=== PATIENT | male | born 1950 | race Caucasian/White ===

== ENCOUNTER 2018-11-20 19:00 | Inpatient (IN) ==
[2018-11-20 23:26] LABS: BASO# 0.03 X1000 (0.0-0.2); BASO% 0.3 % (0.0-0.8); EOS# 0.16 X1000 (0.0-0.7); EOS% 1.7 % (0.0-10.0); HEMATOCRIT 48.3 % (42.0-52.0); HEMOGLOBIN 16.1 g/dL (14.0-18.0); IMM GRAN# 0.03 X1000 (0.0-0.04); IMM GRAN% 0.3 % (0.0-0.5); LYMPH# 2.76 X1000 (1.2-3.4); LYMPH% 29.4 % (20.5-51.1); MCH 31.6 PG (27-31); MCHC 33.3 g/dL (33-37); MCV 94.9 FL (81-99); MONO# 1.07 X1000 (0.11-0.59); MONO% 11.4 % (1.7-9.3); MPV 10.2 FL (7.4-10.4); NEUT# 5.33 X1000 (1.4-6.5); NEUT% 56.9 % (42.2-75.2); PLT 240 X1000 (130-400); RBC 5.09 XMIL (4.7-6.1); RDW 13.1 % (11.5-14.5); WBC 9.38 X1000 (4.8-10.8)
[2018-11-20 23:35] LABS: INR 0.93; PROTIME 13.2 Seconds (11.0-16.0); PTT 29.2 Seconds (22.3-41.8)
[2018-11-20 23:44] LABS: ALB/GLOB RATIO 1.6; ALBUMIN 4.7 g/dL (3.5-5.0); CALCIUM 9.9 mg/dL (8.8-10.2); CREATININE 1.2 mg/dL (0.7-1.2); TOTAL BILIRUBIN 0.44 mg/dL (0.20-1.00); TOTAL PROTEIN 7.6 g/dL (6.3-8.3)
--- NOTE | 2018-11-21 02:33 | ED EKG INTERP ---
This chart was entered by Reyna Lacy Scribe, acting as scribe for Osman Carrera MD. EKG Interpretation - EKG Time of EKG reading by physician:: 19:07 EKG Read and Signed by:: Osman Carrera EKG Interpretation (*Must complete 3 of following elements*): Normal Rate: 79 Rhythm: sinus with pvc [place]: normal ST Wave: normal Attestation - Physician/ VICKY Attestation Patient care was provided by Advanced Practice Provider:: No The physician spent face to face time with patient:: Yes Advanced Practice Provider documentation review:: Supervising physician onsite and consulted in the evaluation and care of this patient. The physician did have a face to face encounter with the patient. This chart was documented by the indicated scribe, (Reyna Lacy Scribe) and accurately reflects the services I performed and decisions made by me, Osman Carrera MD, as attested by the provider's signature.
[2018-11-21] MEDS ORDERED: BENADRYL PO ONE (02:38)
[2018-11-21] MEDS ORDERED: TYLENOL PO PRN (03:40)
[2018-11-21] MEDS ORDERED: ZOFRAN IV PRN (03:40)
--- NOTE | 2018-11-21 06:18 | Diag Imaging Result Doc PS360 ---
CT HEAD W/O CONTRAST - 11/20/2018 INDICATION: dizziness COMPARISON: None FINDINGS: The ventricles and sulci are normal in size and contour. No intracranial mass or hemorrhage. The skull is intact. The sinuses mastoids and middle ears are clear. IMPRESSION: Negative exam. This exam was performed using automated exposure control, adjustment of mA or kV according to patient size, and/or use of iterative reconstruction technique Electronically signed by Shashank Vilchis 11/21/2018 6:16 AM
[2018-11-21] MEDS: SYNTHROID PO SCH (06:44)
--- NOTE | 2018-11-21 07:36 | Diag Imaging Result Doc PS360 ---
CHEST-1 VIEW - 11/20/2018 INDICATION: Dizziness, CP COMPARISON: 08/29/2018 FINDINGS: The lungs are normally expanded and clear. Heart size and mediastinal contours are normal. No pneumothorax or pleural effusion. IMPRESSION: Negative exam. Electronically signed by Shashank Vilchis 11/21/2018 7:34 AM
--- NOTE | 2018-11-21 07:38 | EKG Report ---
Test Performed on : 11/21/2018 07:14:10 AM Test Reason : chest pain Blood Pressure : / mmHG Vent. Rate : 053 BPM Atrial Rate : 053 BPM P-R Int : 158 ms QRS Dur : 110 ms QT Int : 440 ms P-R-T Axes : 021 -13 025 degrees QTc Int : 412 ms Sinus bradycardia. Otherwise normal ECG When compared with ECG of 20-NOV-2018 19:07, (Unconfirmed) premature supraventricular complexes. are no longer present Vent. rate has decreased BY 26 BPM Unconfirmed Result
--- NOTE | 2018-11-21 08:02 | EKG Report ---
Test Performed on : 11/20/2018 7:07:00 PM Test Reason : palpitations Blood Pressure : / mmHG Vent. Rate : 079 BPM Atrial Rate : 079 BPM P-R Int : 158 ms QRS Dur : 102 ms QT Int : 382 ms P-R-T Axes : 043 -19 041 degrees QTc Int : 438 ms Sinus rhythm. with premature supraventricular complexes. Otherwise normal ECG When compared with ECG of 20-APR-2018 07:05, premature supraventricular complexes. are now present Vent. rate has increased BY 28 BPM Unconfirmed Result
[2018-11-21 08:09] LABS: BASO# 0.03 X1000 (0.0-0.2); BASO% 0.4 % (0.0-0.8); EOS# 0.18 X1000 (0.0-0.7); EOS% 2.1 % (0.0-10.0); HEMOGLOBIN 15.7 g/dL (14.0-18.0); IMM GRAN# 0.03 X1000 (0.0-0.04); IMM GRAN% 0.4 % (0.0-0.5); LYMPH# 1.96 X1000 (1.2-3.4); LYMPH% 23.3 % (20.5-51.1); MCH 31.3 PG (27-31); MCHC 32.7 g/dL (33-37); MCV 95.8 FL (81-99); MONO% 11.9 % (1.7-9.3); MPV 10.5 FL (7.4-10.4); NEUT# 5.23 X1000 (1.4-6.5); NEUT% 61.9 % (42.2-75.2); PLT 218 X1000 (130-400); RBC 5.01 XMIL (4.7-6.1); RDW 13.2 % (11.5-14.5); WBC 8.43 X1000 (4.8-10.8)
[2018-11-21 08:10] LABS: AGAP 13; ALB/GLOB RATIO 1.6; ALBUMIN 4.4 g/dL (3.5-5.0); ALKALINE PHOSPHATASE 49 U/L (32-122); BUN 14 mg/dL (8-22); CALCIUM 9.6 mg/dL (8.8-10.2); CHLORIDE 102 mmol/L (98-107); COSMO 278; CREATININE 1.1 mg/dL (0.7-1.2); ESTIMATED GFR > 60; GLUCOSE 96 mg/dL (70-104); GOT 38 U/L (10-34); GPT 57 U/L (10-44); MAGNESIUM 1.8 mg/dL (1.5-2.7); POTASSIUM 3.9 mmol/L (3.5-5.1); SODIUM 139 mmol/L (136-145); TCO2 24 mmol/L (25-35); TOTAL BILIRUBIN 0.55 mg/dL (0.20-1.00); TOTAL PROTEIN 7.2 g/dL (6.3-8.3)
[2018-11-21] MEDS ORDERED: ASPIRIN PO SCH (09:00)
--- NOTE | 2018-11-21 09:09 | HISTORY AND PHYSICAL ---
PRIMARY CARE PROVIDER: Doris Jimenez MD. DIAL BUFFER: Ryan Ibanez MD. CHIEF COMPLAINT: Chest pain. HISTORY OF PRESENT ILLNESS: Mr. Yoder is a 68-year-old male, who presented to the ER yesterday evening on 11/20 at 1900. He states that earlier in the day on 11/20 he was actually up on his roof. He was doing some caulking work. The patient denied any kind of strenuous activity. He stated that he became dizzy. He did decided to get off the roof and take a rest. He said that a few hours later he was out in his garage and sitting working on some things and did have another episode of dizziness. Approximately 30 minutes to an hour after this, they were in the car riding. The patient was sitting down, not doing any strenuous activity when he began having left- sided chest pain. The patient states that it kind of started in his shoulder went into his chest and down his left side. He denied any radiation to his bilateral, neck, jaw, or back. He denied shortness of breath or diaphoresis. The patient states that the pain was a cramping in nature. The patient's chest pain had resolved by the time he had arrived to the ER. He has denied any chest pain since his arrival to the ER and is not complaining of any chest pain at this time. He denies headache, shortness of breath, cough, abdominal pain, nausea, vomiting, or diarrhea. The patient states that he usually has problems with constipation and does take medicine for this daily. He does at this time report that his stomach feels a little more distended than normal. The patient is complaining that he has a gassy-type feeling of being bloated. He denied any dysuria or urinary frequency. He denies current pain, numbness, tingling, or swelling in the extremities though the patient states that he occasionally notices that his socks may leave indentions in his legs towards the end of the day. The patient denies any recent illness except for he did have possible flu approximately 3-4 weeks ago. He reported that he did have a day or two of nausea, vomiting, and diarrhea, with fever, though he never was tested for the flu, they did treat him with Tamiflu and he states that his symptoms have since resolved. Upon arrival to the ER, the patient vital signs were: Temperature 98.4, heart rate 61, respirations 16, blood pressure is 164/95, oxygen saturation 92% room air. His EKG showed sinus rhythm with premature supraventricular complexes, though there does not to be any acute changes noted. Cardiac enzymes thus far have been negative. A chest x-ray showed no acute abnormalities. At this time, the patient will be admitted for further treatment and evaluation of his chest pain. The patient also reported having an approximately 15 minute period of nose bleeding this afternoon as well. The patient does report that he does have a lot of problems with allergies and has had recent rhinorrhea and does occasionally notice that he has blood-tinged sinus drainage when blowing his nose at times. REVIEW OF SYSTEMS: A 14-point review of systems was conducted with the patient and all were negative except pertinent positives mentioned in the above HPI. PAST MEDICAL HISTORY: 1. History of diverticulitis. 2. Paroxysmal atrial fibrillation currently on aspirin. 3. Type 2 diabetes mellitus. 4. Hypertension. 5. Hyperlipidemia. 6. BPH. 7. Asthma. 8. Hypothyroidism. 9. Seasonal allergies. PAST SURGICAL HISTORY: 1. Tonsillectomy. 2. TURP. SOCIAL HISTORY: The patient is a former smoker. He quit smoking in 1977 though did have a 10 year history of prior this smoking 1-1/2 packs per day. He denies any alcohol or illicit drug use. He is . He is a retired from doing maintenance work. There is no alcohol or illicit drug use. FAMILY HISTORY: Positive for his mother having a history of stroke. She from a myocardial infarction at age 64. His father from a myocardial infarction at age 77. He does have a sister, who he states has pretty much the same medical problems that he does. ALLERGIES: The patient has allergies to codeine. HOME MEDICATIONS: 1. Vitamin C 500 mg p.o. at bedtime. 2. Aspirin 325 mg p.o. daily. 3. Astelin nasal spray 1 spray each nostril p.o. q.a.m. 4. Citracal plus vitamin D 1 p.o. daily. 5. Zyrtec 10 mg p.o. daily. 6. Vitamin B12 500 mg p.o. q.a.m. 7. Benadryl 50 mg p.o. at bedtime. 8. Fiber capsule 6 each p.o. daily. 9. Flaxseed oil 1300 mg softgel 1 capsule p.o. b.i.d. 10.Breo Ellipta 200 mg - 25 mcg inhaler 1 puff inhaled q.a.m. 11.Glimepiride 1 mg p.o. daily. 12.Hydrochlorothiazide 12.5 mg p.o. daily. 13.Lactulose 30 mL p.o. at bedtime. 14.Levothyroxine 50 mcg p.o. q.a.m. 15.Loratadine 10 mg p.o. daily. 16.Losartan 100 mg p.o. q.a.m. 17.Lovastatin 20 mg p.o. at bedtime. 18.Centrum Silver multivitamin 1 p.o. daily. 19.Niacin 500 mg b.i.d. 20.Irais-Colace 2 tablets p.o. b.i.d. 21.Actos 50 mg p.o. q.a.m. 22.MiraLAX 17 g p.o. b.i.d. as needed. 23.Zantac 75 mg p.o. b.i.d. DIAGNOSTIC DATA/LABORATORY RESULTS: White blood cell count is 9380, hemoglobin 16.1, hematocrit 48.3, platelet count is 240. PT 13.2. INR 0.93. PTT is 29.2. Sodium 141, potassium 4, chloride 101, serum bicarb is 24, BUN 16, creatinine 1.2, with a GFR of 60, glucose 94, calcium 9.9. Liver function tests are within normal limits except for AST and ALT are both slightly elevated. CK 175. Troponin less than 0.01. ProBNP is 58. EKG showed sinus rhythm with premature supraventricular complexes at a rate of 79 with a QTc of 438. There do not appear to be any acute changes from prior EKG at this time. Chest x-ray showed no acute abnormality. A CT of the head showed no acute intracranial disease. PHYSICAL EXAMINATION: VITAL SIGNS: Heart rate 60, respirations 17, blood pressure is 156/92, oxygen saturation is 95%. GENERAL: Mr. Yoder is a pleasant 68-year-old male who is resting in the ER stretcher. He was in no acute distress. He was awake, alert, and able to answer all questions appropriately. HEENT: Head is atraumatic, normocephalic. Pupils are equal, round, reactive to light, were 3 mm bilaterally and brisk. Oral mucosa was moist. NECK: Supple, trachea midline. No carotid bruits noted upon auscultation bilaterally. No JVD noted. CARDIOVASCULAR: The patient has S1 and S2 present. There does appear to be a faint systolic murmur noted. When asked about this, the patient states that he has been told that he had a heart murmur before. PULMONARY: The patient has symmetrical chest expansion bilaterally. Lung sounds were clear to auscultation in bilateral full flannery. ABDOMEN: Soft, does appear to be a little bit distended, though was nontender upon palpation. Bowel sounds are present in all 4 quadrants, were normoactive. EXTREMITIES: No cyanosis, clubbing, or edema noted. Pulse, motor, and sensory were intact in all extremities. Radial pulses and pedal pulses are 2+ bilaterally. INTEGUMENTARY: The patient's skin is pink, warm, and dry. NEUROLOGICAL: The patient is alert and oriented to person, place, and time, is able to move all extremities. There does not appear to be any focal neurological deficits noted. ASSESSMENT AND PLAN: 1. Chest pain. For further evaluation of this, we will continue with a series of cardiac enzymes, will repeat an EKG in the morning. The patient will be n.p.o. after midnight for a lipid profile in the morning as well. We have also ordered an echocardiogram. He will be on continuous cardiac telemetry with frequent vital signs q.4 hours. We have placed a consult with Dr. Skinner of Cardiology and will await their evaluation for recommendations for management. We have placed the patient on daily aspirin as well. 2. Hypertension. Will continue his already prescribed antihypertensive medications. 3. Hyperlipidemia. Will continue his lovastatin. 4. History of paroxysmal atrial fibrillation. The patient does appear to be in sinus rhythm at this time. His rate is controlled. Will continue to follow. 5. Diabetes mellitus. Continue his Actos and glimepiride. 6. Epistaxis. The patient did mention that he had a 15 minute period of epistaxis prior to arrival. This has subsided. He has not had any further problems. The patient reports he does have lots of problems with allergies and rhinorrhea. Given his recent epistaxis, we have held his Astelin spray. 7. Hypothyroidism. Will continue his levothyroxine. 8. Deep venous thrombosis prophylaxis will be provided with sequential compression devices. The patient has been placed on the Medical floor telemetry, will do strict intake and output. He will be n.p.o. except for water for a lipid profile in the morning. Once this is drawn, he will continue with a diabetic diet. The patient's abdomen did appear to be somewhat distended, he complained of this as well. He has reported that he has been having a lot of gas-type pain. We did order abdomen flat and upright for this morning and will await those results and continue to follow. Further orders and recommendations pending hospital course, diagnostic studies, and physician evaluation. Dictated by ERA Cisneros for Joaquín Paris MD cc: Joaquín Paris MD
[2018-11-21] MEDS: AMARYL PO SCH (09:52)
[2018-11-21] MEDS: ACTOS PO SCH (09:52)
[2018-11-21] MEDS: ZYRTEC PO SCH (09:52)
[2018-11-21] MEDS: PERICOLACE PO SCH ×2 (09:52→23:32)
[2018-11-21] MEDS: COZAAR PO SCH (09:52)
[2018-11-21] MEDS: ZANTAC PO SCH ×2 (09:53→23:32)
[2018-11-21] MEDS: HYDROCHLOROTHIAZIDE PO SCH (09:53)
--- NOTE | 2018-11-21 10:20 | Diag Imaging Result Doc PS360 ---
ABDOMEN FLAT/UPRIGHT - 11/21/2018 INDICATION: Abd distention, Hx of chronic constipation COMPARISON: 12/12/2016 FINDINGS: There is a nonobstructive bowel gas pattern. No free air or abdominal calcifications. There is no significant constipation. IMPRESSION: No acute disease. Electronically signed by Shashank Vilchis 11/21/2018 10:17 AM
--- NOTE | 2018-11-21 14:35 | CARDIOLOGY CONSULTATION ---
DATE: 11/21/2018 SUBJECTIVE: Mr. Yoder is a 68 -year-old gentleman who presented to the emergency room with history of dizziness, left sided chest discomfort, left shoulder, arm pain and some numbness. This continued over a few hours. The patient came to the emergency room was admitted. He was ruled out for myocardial infarction by cardiac enzymes. He has had a history of atrial fibrillation in the past. Currently, he is on aspirin. He is being evaluated by electrophysiology as well as far as atrial fibrillation is concerned. He has hypertension, diabetes. There is no history of palpitations. There is no history of dizziness or syncope. He has also had recent episode of epistaxis REVIEW OF SYSTEM: 14 point review of system was done. GI: There is no history of nausea, vomiting, diarrhea. There is no history of hematemesis or melena. Central nervous system: No focal weakness to suggest a CVA or TIA. Genitourinary: There is no dysuria or hematuria. PAST MEDICAL HISTORY: 1. Paroxysmal atrial fibrillation. 2. Hypertension. 3. Diabetes. 4. Hyperlipidemia. 5. Benign prostatic hypertrophy. 6. Asthma. 7. Hypothyroidism. 8. Diverticulitis. PAST SURGICAL HISTORY: 1. Tonsillectomy. 2. Transurethral resection of the prostate. HOME MEDICATIONS: Aspirin, Zyrtec, Benadryl Flaxseed, Glimepiride, Hydrochlorothiazide, lactulose, levothyroxine, loratadine, losartan 100, lovastatin, niacin, Actos, MiraLAX, Zantac. SOCIAL HISTORY: Patient is a former smoker. Quit smoking in 1977. There is no history of alcohol abuse. FAMILY HISTORY: Positive for mother having stroke. She from a myocardial infarction at the age of 64. PHYSICAL EXAMINATION: Blood pressure was 208/100 when he came in. Currently blood pressure is under control. It is 137/70.Cardiovascular System: Normal jugular venous pressure. There no thyromegaly. No carotid bruit. First and second heart sounds were heard. There was no S3 gallop. Respiratory: Normal air entry. There is no crepitations or rhonchi. Abdomen: Soft, obese, nontender. There was no guarding or rigidity. Bowel sounds were heard. Central nervous system: Alert and was moving all 4 extremities. Extremities: Revealed no pedal edema. HEENT: Atraumatic, normocephalic. Pupils were equal and reacting to light. LABORATORY DATA: The patient was ruled out for myocardial infarction by cardiac enzymes. Electrocardiogram revealed sinus bradycardia. There was no ST-T changes to suggest ischemia or infarction. ASSESSMENT AND PLAN: 1. Mr. Rivera Yoder is a 68-year-old gentleman with history of paroxysmal atrial fibrillation, diabetes, hypertension, hyperlipidemia, hypothyroidism is admitted with left- sided chest pain and radiation to the arm which lasted for a couple of hours. In addition he had an episode of epistaxis. However this has been recent. He is not on any anticoagulation at the current time. Given his past medical history we will make sure there is no ischemia. We will set him up to undergo a Cardiolite stress test. In addition, we will get an echocardiogram to assess cardiac and valvular function. 2. His recent elevation in blood pressure. He has been taking his medicines regularly. His last stress test 2016 was normal. As far as his blood pressures medications are concerned, if his blood pressures are not under control we will add beta blockers if required. 3. As far as his paroxysmal atrial fibrillation is concerned, he has been evaluated by electrophysiology. He has been he has been in sinus rhythm all the time. Has had atrial fibrillation in the past. He is currently on aspirin and he had history of nonsustained ventricular tachycardia in the past. We will monitor him overnight. 4. Diabetes, continue with his current medications. 5. He has had hypothyroidism. I have not made any other changes to his medication. Thank you for the consult. cc: Dominick Skinner MD
[2018-11-21] MEDS: BREO ELLIPTA 200/25 MCG INH INH SCH (16:15)
--- NOTE | 2018-11-21 16:42 | PROGRESS NOTE ---
DATE: 11/21/2018 SUBJECTIVE: Patient admitted this morning with chest pain and a couple episodes of dizziness. The initial episode the patient thought may have been due to hypoglycemia as it appeared to resolve with eating a banana. He did not check a sugar at that time as his meter was out of batteries, but on the 2nd episode 3-4 hours later he found a replacement battery and glucose at that time was approximately 130. He denies palpitations, dyspnea, diaphoresis, vertigo. No arrhythmias noted so far on telemetry. Troponins negative x3. No hypoglycemia noted here. Cardiology consulted and plans for stress test in the morning, as well as echocardiogram. Patient with history of atrial fibrillation, but has been in normal sinus rhythm so far here. PLAN: Monitor on telemetry overnight. Further disposition based on results of echocardiogram and stress test tomorrow.
[2018-11-21] MEDS ORDERED: BENADRYL PO SCH (21:00)
[2018-11-21] MEDS ORDERED: MEVACOR PO SCH (21:00)
[2018-11-21] MEDS ORDERED: LACTULOSE PO SCH ×2 (21:00)
[2018-11-22] MEDS: SYNTHROID PO SCH (06:45)
[2018-11-22 07:36] LABS: BASO# 0.03 X1000 (0.0-0.2); BASO% 0.3 % (0.0-0.8); EOS% 1.8 % (0.0-10.0); HEMATOCRIT 51.3 % (42.0-52.0); HEMOGLOBIN 16.8 g/dL (14.0-18.0); IMM GRAN# 0.02 X1000 (0.0-0.04); IMM GRAN% 0.2 % (0.0-0.5); LYMPH# 2.27 X1000 (1.2-3.4); LYMPH% 20.5 % (20.5-51.1); MCH 31.6 PG (27-31); MCHC 32.7 g/dL (33-37); MCV 96.4 FL (81-99); MONO# 1.18 X1000 (0.11-0.59); MONO% 10.6 % (1.7-9.3); MPV 10.2 FL (7.4-10.4); NEUT# 7.39 X1000 (1.4-6.5); NEUT% 66.6 % (42.2-75.2); PLT 245 X1000 (130-400); RBC 5.32 XMIL (4.7-6.1); RDW 13.2 % (11.5-14.5); WBC 11.09 X1000 (4.8-10.8)
[2018-11-22 07:44] LABS: HEMOGLOBIN A1C 5.5 % (4.8-6.0)
[2018-11-22 08:00] LABS: AGAP 14; BUN 16 mg/dL (8-22); CALCIUM 9.1 mg/dL (8.8-10.2); CHLORIDE 101 mmol/L (98-107); COSMO 276; ESTIMATED GFR > 60; GLUCOSE 122 mg/dL (70-104); POTASSIUM 3.8 mmol/L (3.5-5.1); SODIUM 137 mmol/L (136-145); TCO2 22 mmol/L (25-35)
[2018-11-22] MEDS: BREO ELLIPTA 200/25 MCG INH INH SCH (08:04)
[2018-11-22] MEDS ORDERED: LEXISCAN ONE (08:10)
--- NOTE | 2018-11-22 08:16 | ECHO REPORT ---
ORDER DATE: 11/21/2018 INTERPRETING PHYSICIAN: Dr. Rossi INDICATION: Chest pain, dizziness. M-MODE MEASUREMENTS: Left ventricle end diastole: 5.1 cm. Left ventricle end systole: 3.1 cm. Posterior wall: 1.0 cm. Interventricular septum: 1.3 cm. Left atrium: 3.7 cm. Aortic root: 3.4 cm. SUMMARY OF 2-DIMENSIONAL IMAGIN. Left ventricular function is normal. Ejection fraction 59%. No wall motion abnormality is noted. 2. The right ventricle is normal. 3. The aortic valve is normal. Color flow mapping unremarkable. 4. The mitral valve is normal. Color flow mapping unremarkable. 5. Pulse wave Doppler of the mitral inflow shows reversal of the E/A ratio. The ratio is 0.7. 6. Tissue Doppler of septal and lateral mitral annulus averages 9 cm. There is no diastolic dysfunction. 7. The pulmonic valve is normal. Color flow mapping unremarkable. 8. The inferior vena cava appears to be mildly enlarged. The pulmonary pressure is estimated at 47-52 mmHg. There is no evidence of mass or thrombus. Clinical correlation recommended. cc: Kingsley Rossi MD
[2018-11-22] MEDS ORDERED: ASPIRIN EC PO SCH (09:00)
[2018-11-22] MEDS: COZAAR PO SCH (10:08)
[2018-11-22] MEDS: HYDROCHLOROTHIAZIDE PO SCH (10:09)
[2018-11-22] MEDS: ZYRTEC PO SCH (10:09)
[2018-11-22] MEDS: PERICOLACE PO SCH (10:10)
[2018-11-22] MEDS: ACTOS PO SCH (10:10)
[2018-11-22] MEDS: AMARYL PO SCH (10:10)
[2018-11-22] MEDS: ZANTAC PO SCH (10:11)
[2018-11-22 11:54] VITALS: BP 151/94
--- NOTE | 2018-11-22 13:58 | Diag Imaging Result Document ---
PROCEDURE NAME: MYOCARDIAL PERF SCAN, STR/REST - 11/22/2018 PROCEDURE: Lexiscan Cardiolite stress test. DESCRIPTION OF PROCEDURE IN DETAIL: Lexiscan was infused per standard protocol. There was no chest pain. Stress electrocardiogram was negative for ischemia. Following Lexiscan infusion, Cardiolite was injected. Gated SPECT images were obtained in standard views. Images revealed normal left ventricular cavity size. There is chest wall and diaphragmatic attenuation. There is low-grade fixed defect in the left ventricular apex suggestive of attenuation defect. There is no evidence of ischemia. Left ventricular ejection fraction by gated SPECT was 73%. Total of 14.4 mCi of Cardiolite was injected for the rest phase; 43.4 mCi of Cardiolite was injected for the stress phase. CONCLUSIONS: 1. No chest pain. 2. Negative Lexiscan electrocardiogram. 3. Myocardial perfusion images revealed no evidence of ischemia. 4. Low-grade small-sized fixed defect in the left ventricular apex with normal wall motion and chest wall attenuation. This is likely to represent attenuation defect. Low probability of scar. 5. Left ventricular ejection fraction by gated SPECT was 73%. cc: MD Maya Gaona PA
--- NOTE | 2018-11-22 18:46 | DISCHARGE SUMMARY ---
ADMISSION DATE: 11/21/2018 DISCHARGE DATE: 11/22/2018 DISCHARGE DIAGNOSIS: 1. Atypical chest pain. 2. Hypertension. 3. Hypoglycemia. 4. Dyslipidemia. 5. Epistaxis. CONSULTATIONS: Cardiology, Dr. Skinner. PROCEDURES: None. HOSPITAL COURSE: Briefly, this is a 68-year-old male presenting with some chest pain. He also had elevated blood pressure when he came in up to 208/101, blood pressure 179/85. The patient was admitted for chest pain. He also had some epistaxis, but that improved. Echocardiogram showed an EF of 59%. No diastolic dysfunction. Really no other major issues. Cardiology was consulted, recommended treatment, not currently on any anticoagulation. He had some bleeding issues. He reports taking his medications. Recommended adding beta blockers now. Looking at his blood pressure here, nothing else was added. His blood pressure currently was 151/94. He is not on any medications to slow his heart rate down, but he reportedly has a history of such, but in any case, myocardial perfusion imaging done on the was negative. He had a small sized defect. EF was 73% so he was felt stable for discharge. DISCHARGE MEDICATIONS: Benadryl, lactulose, lovastatin 20, vitamin C 500 units at bedtime, Afrin, Breo Ellipta 1 daily, multivitamin daily, calcium, glimepiride 1 daily, hydrochlorothiazide 12.5 daily, Synthroid 50 daily, loratadine 10 daily, losartan 100 daily, niacin 500 b.i.d., Irais-Colace 1 g b.i.d., pioglitazone 15 daily, ranitidine 75 b.i.d., vitamin B12 500 daily, Zyrtec 10 daily, aspirin 325 daily, MiraLAX 17 g daily. DISCHARGE CONDITION: Stable. FOLLOWUP: Follow up with his PCP and [facility] in 4 to 6 weeks. cc: Shane Gresham MD
== END 2018-11-22 16:32 | disposition home or self-care (01) | DRG 313 ==
LOC: ED 19:00 → 3N 11-21 02:49 → SUATTDRO 11-21 02:49
PROVIDERS: ATTEND Internal Medicine
CPT/HCPCS: 70450; 71010; 71045; 74019; 74020; 78452; 80048; 80053; 80061; 82550; 82948; 83036; 83721; 83735; 83880; 84484; 85025; 85610; 85730; 93005; 93017; 93306; 99285; A9270; A9500; J2785; XXXXX